=== PATIENT | female | born 1955 | race Two or more races ===

== ENCOUNTER 2021-01-28 11:08 | Emergency (ER) | payer OTHER ==
[~2021-01-28] VITALS: Ht 154.9 cm; Wt 72.6 kg
[2021-01-28] MEDS ORDERED: DexAMETHasone SOD PHOS 10MG/1ML VIAL INJ IV ONE (11:15)
[2021-01-28 11:59] LABS: Basophils # (auto) 0 10 ^3/uL (0-0.2); Basophils % (auto) 0.2 % (0.0-2.0); Eosinophils # (auto) 0 10 ^3/uL (0-0.8); Eosinophils % (auto) 0.1 % (0.0-7.0); Hematocrit 38.4 % (36.0-46.0); Hemoglobin 13.1 g/dL (12.2-16.2); Lymphocytes # (auto) 0.6 10 ^3/uL (0.4-5.4); Lymphocytes % (auto) 10.8 % (10.0-50.0); Mean Corpuscular Hemoglobin 31.1 pg (28.0-32.0); Mean Corpuscular Volume 91.3 fL (80.0-100.0); Monocytes # (auto) 0.4 10 ^3/uL (0-1.3); Monocytes % (auto) 7.5 % (0.0-12.0); Neutrophils # (auto) 4.8 10 ^3/uL (1.6-8.6); Neutrophils % (auto) 81.4 % (37.0-80.0); Platelet Count (auto) 177 10^3/uL (140-450); Red Cell Distribution Width 13.8 % (11.8-14.3); White Blood Cell 5.9 10^3/uL (4.4-10.8)
[2021-01-28 12:00] VITALS: BP 159/83
[2021-01-28 12:17] LABS: Albumin 2.7 g/dL (3.4-5.0); Anion Gap 11 (5-15); Blood Urea Nitrogen 38 mg/dL (7-18); Calcium 8.4 mg/dL (8.5-10.1); Carbon Dioxide 20 mmol/L (21-32); Chloride 107 mmol/L (98-107); Glucose 173 mg/dL (74-106); Sodium 138 mmol/L (136-145)
[2021-01-28 12:25] LABS: Alanine Aminotransferase 24 U/L (13-56); Alkaline Phosphatase 58 U/L (45-117); Aspartate Aminotransferase 27 U/L (15-37); BUN/Creatinine Ratio 24.1; Bilirubin, Total 0.5 mg/dL (0.2-1.0); CRP High Sensitivity 6.47 mg/dL (< 0.3); GFR African American 42 mL/min; GFR Non-African American 35 mL/min; Total Protein 6.8 g/dL (6.4-8.2)
== END 2021-01-28 13:39 | disposition home or self-care (01) ==
LOC: EDSEX 11:08 → ER 11:08 → EDBD 11:08 → ER 13:39
DX: U07.1 COVID-19 (principal); J06.9 Acute upper respiratory infection, unspecified; I10 Essential (primary) hypertension; E11.9 Type 2 diabetes mellitus without complications; Z86.73 Personal history of transient ischemic attack (TIA), and cerebral infarction without residual deficits
CPT/HCPCS: 36415; 71045; 80053; 82728; 83880; 84484; 85025; 85049; 86141; 87426; 96374; 99284; C9803; J1100; U0003